=== PATIENT | male | born 1940 | race Caucasian/White ===

== ENCOUNTER 2017-03-25 18:38 | Observation (INO) | payer MEDICARE ==
[~2017-03-25] VITALS: Ht 175.3 cm; Wt 95.5 kg
[~2017-03-25 18:38] MED LIST: CALC-961 PO; LISI1TAB9 PO
[2017-03-25 18:47] VITALS: BP 164/84; PULSE 75; RESP 15; O2SAT 98
--- NOTE | 2017-03-25 19:28 | ED.REPORT ---
HPI-General Illness Date of Service Mar 25, 2017 ED Provider: Germán Padilla MD Pt is a 77 year old male with a history of HTN who presents to the ED complaining of left leg malfunction onset 8 hours ago. He denies chest pain, chest discomfort, dizziness, tinnitus, nausea, numbness, change in speech and weakness. He reports that he was sitting in a chair when he felt like he was falling out his chair to the left. The pt got up and tried to walk down the hallway to his room, and he states that his left leg "wasn't working right" and that he was falling against the wall. He reports that he used his blood pressure cuff and determined that he had a blood pressure of 101/60 with a heart rate of 110. At the time, the pt also reports that it felt like his heart was pounding and that his heart beat was possibly irregular. The pt admits drinking alcohol (3x daily), but denies smoking. He denies taking Aspirin. Nursing Notes Stated Complaint: MEMORY DIFFICULTY,L ARM NUMB Chief Complaint: Chest Pain Nursing Notes Reviewed: Yes Allergies: Coded Allergies: No Known Drug Allergies (Verified Allergy, Unknown, 03/25/17) Scheduled Calcium Carbonate (Calcium Carbonate) 600 Mg Tablet 600 MG PO DAILY Gluc 2Kcl/Chondr/George Hy/Hy AC (Glucosamine & Chondroitin Cap) 1 Each Capsule 2 EACH PO DAILY Lisinopril / HCTZ 20-12.5 mg (Lisinopril / HCTZ 20-12.5 mg) 1 Each Tablet 1 EACH PO QAM Multivit-Min/FA/Lycopene/Lut (Senior Tabs) 0.4 Mg-300 Mcg-250 Mcg Tablet 1 EACH PO QAM [place]-3/Dha/Epa/Fish Oil (Fish Oil 1,000 mg Softgel) 1 Each Capsule 1 EACH PO QAM Tamsulosin (Flomax) 0.4 Mg Capsule 0.4 MG PO DAILY General Time Seen by MD: 19:27 Chief Complaint Other (Difficulty walking) Hx Obtained From: Patient Arrived By: Walk-in Sudden in Onset?: Yes Onset Occurred: 5 - 8 hours ago Symptom Duration: 1 - 15 minutes Severity: Current: No pain currently Severity: Maximum: No pain Recent Healthcare: No recent doctor visit, No recent hospitalization Similar Sx Previous: No Past Medical History Past Medical History Notes: PCP - Yvette Merritt Past Medical History Psoriasis Denies: Congestive heart failure, Diabetes mellitus Past Surgical History Vasectomy Smoking History Never Smoker Social History Alcohol Use: 1-3 per day Drug Use: Denies drug use Other Social History: Good social support Ambulatory Status Independent Review of Systems Denies chest discomfort Full Review of Systems Ears / Nose / Throat: Denies: Ear ringing bilateral Cardiovascular: Denies: Chest pain GI: Denies: Nausea Neurologic: Reports: Problem walking, Denies: Dizziness, Numbness Complete sys rev & neg: except as marked. Physical Exam Vital Signs Vital Signs Date Time Temp Pulse Resp B/P Pulse Ox O2 Delivery O2 Flow Rate FiO2 03/25/17 22:16 66 16 164/90 98 03/25/17 21:00 64 16 132/76 96 Room Air 03/25/17 18:47 36.7 75 15 164/84 98 Room Air Initial VS: Reviewed Neck: Full range of motion Respiratory: Breath sounds normal, Clear to auscultation, No respiratory distress Extremities: Vascular intact, Neuro intact Skin: Warm, Dry Neurologic: Alert, Oriented, Nonfocal Psychiatric: Mood/affect normal, Behavior normal General/Constitutional: Awake, Alert, Cooperative, Not toxic appearing Head / Eyes: Normocephalic, EOMI Cardiovascular: Heart rate NL, Regular rhythm, Heart sounds NL, No gallop, No murmurs Neurologic: Oriented X3, Speech NL, No motor deficits, No sensory deficits Mental Status: Negative: Disoriented to time Sensation to palpation is normal. No ataxia or drift. Interpretation & Diagnostics Lab Results Interpretation Result Diagram: 03/25/17194403/25/171944 Test 03/25/17 18:45 03/25/17 19:45 03/25/17 20:06 Hold Cruz Top Tube Received (Received) White Blood Count 5.5th/mm3 (3.8-10.1) Red Blood Count 4.53mil/mm3 (4.40-5.80) Hemoglobin 14.1g/dL (13.8-17.2) Hematocrit 40.4% (41.0-50.0) Mean Corpuscular Volume 89.2fL (81-100) Mean Corpuscular Hemoglobin 31.1pg (27.0-35.0) Mean Corpuscular Hemoglobin Concent 34.9% (32.0-37.0) Red Cell Distribution Width 13.4% (12.3-15.4) Platelet Count 264bil/L (150-400) Neutrophils (%) (Auto) 52.1% (40-74) Lymphocytes (%) (Auto) 31.4% (14-46) Monocytes (%) (Auto) 12.2% (4-12) Eosinophils (%) (Auto) 3.7% (0-5) Basophils (%) (Auto) 0.4% (0-3) Sodium Level 138mEq/L (134-144) Potassium Level 4.1mEq/L (3.5-5.2) Chloride Level 102mEq/L (97-108) Carbon Dioxide Level 21mmol/L (18-29) Blood Urea Nitrogen 15mg/dL (8-27) Creatinine 0.95mg/dL (0.76-1.27) Estimat Glomerular Filtration Rate 82mL/min (>59) Glucose Level 105mg/dL (60-99) Calcium Level 9.4mg/dL (8.5-10.1) Magnesium Level 2.3mg/dL (1.6-2.6) Total Bilirubin 0.2mg/dL (0.0-1.2) Aspartate Amino Transf (AST/SGOT) 25U/L (0-50) Alanine Aminotransferase (ALT/SGPT) 19U/L (0-44) Alkaline Phosphatase 57U/L (25-160) Troponin T < 0.010ug/L (0.0-0.011) Total Protein 7.0g/dL (6.4-8.4) Albumin 4.0g/dL (3.4-5.0) Triglycerides Level 202mg/dL (0-149) Cholesterol Level 191mg/dL (100-199) LDL Cholesterol, Calculated 47.600mg/dL (0-99) VLDL Cholesterol 40mg/dL HDL Cholesterol 103mg/dL (>39) Cholesterol/HDL Ratio 1.85 (0.0-4.4) Thyroid Stimulating Hormone (TSH) 1.150uIU/mL (0.450-4.500) Hold Urine Received (Received) ECG Interpretation ECG Interpretation: Sinus rhythm with a rate of 72. Possible left atrial enlargement. Time: 19:01 Interpreted by: ED physician CT Head Interpretation IMPRESSION: No acute intracranial abnormality. Dictated by: Ned Giles M.D. on 03/25/2017 at 20:08 Study: Head CT no contrast Interpretation / Wet Read by: Interpret - Radiologist Re-Eval/Medical Decision Med Decision/Clinical Course 77-year-old male with a history suggesting a transient ischemic attack involving the left lower extremity. He has normotensive and in normal sinus rhythm at present, he is noted to have a right carotid bruit. Noncontrast CT scan is without acute abnormality. He was given aspirin in the emergency department and will be admitted to the hospitalist service for an expedited evaluation. CODE STATUS was discussed and he wishes to be full code Source of Hx: Old records Time of Eval: 21:58 Patient Status: Condition improved Re-Evaluation/Progress Note: Pt rechecked. Informed pt of plan to admit. Pt understands and agrees with plan to admit. All questions were answered. Consultation : Referral / Consult Name: Luba Martinez DO Consulted With: Hospitalist Call Returned at: 22:18 Beverage Host: Will see patient, Agrees with eval, Agrees with plan, Accepts admit Counseled Regarding: Diagnosis, Lab results, Need for admission Discharge & Departure Primary Impression: Transient ischemic attack (TIA) Transient cerebral ischemia type: unspecified Qualified Code: G45.9 - Transient cerebral ischemic attack, unspecified Disposition: ADMITTED TO HOSPITAL Discharge Condition All VS Reviewed: Yes Condition: Stable Referrals: Gail Spangler PA-C (PCP) [employer] Attestation Portions of this note were transcribed by Hyacinth Vincent. I, Dr. Padilla personally performed the history, physical exam and medical decision-making; I reviewed and confirmed the accuracy of the information in the transcribed note. Signed by : Natali Funes, 03/25/17 and 21:30. copies to: Gail Spangler PA-C Risk Factors NIH Stroke Scale Level of Consciousness: Alert and responsive (0) Open/Close Eyes/Hand Link Machine Operator: Performs both tasks (0) Horizontal EO Movements: None (0) Visual [place]: No visual loss (0) Facial Palsy: Normal symmetry (0) Right Arm Motor Drift (10s): No drift 10 sec (0) Left Arm Motor Drift (10s): No drift 10 sec (0) Right Leg Motor Drift (5s): No drift 5 sec (0) Left Leg Motor Drift (5s): No drift 5 sec (0) Limb Ataxia FNF/Heel-[place]: No ataxia (0) Sensation (Arms/Legs/Face): No sensory loss (0) Language Aphasia: No aphasia, normal (0) Dysarthria: No dysarthria, normal (0) Extinction/Inattention: No exctinct/inattent (0) NIHSS Score: 0 Time NIHSS Performed: 21:58 Date NIHSS Performed: Mar 25, 2017 Germán Padilla MD Mar 25, 2017 19:28 Hyacinth Shelton Mar 25, 2017 20:18
[2017-03-25 19:58] LABS: BASOPHILS % (AUTO) 0.4 % (0-3); EOSINOPHILS % (AUTO) 3.7 % (0-5); MONOCYTES % (AUTO) 12.2 % (4-12); Mean Corpuscular Hemoglobin 31.1 pg (27.0-35.0); Mean Corpuscular Volume 89.2 fL (81-100); NEUTROPHILS % (AUTO) 52.1 % (40-74); Platelet Count 264 bil/L (150-400)
--- NOTE | 2017-03-25 20:16 | DRSVH ---
PROCEDURE: CT BRAIN WITHOUT CONTRAST ([id number]) INDICATIONS: L arm numbness TECHNIQUE: Noncontrast 4.5 mm thick angled axial sections acquired from the foramen magnum to the vertex, with c oronal reformats. COMPARISON: None. FINDINGS: Image quality: Excellent. CSF spaces: Basal cisterns are patent. No extra-axial fluid collections. The ventricles are symmet abimbola in size and shape. Probable arachnoid cyst in the posterior fossa at midline. Brain: No intracranial bleeds or masses. There is mild cerebral volume loss for age, with resultant ventricular and sulcal prominence. There are mild periventricular and deep white matter chronic sma ll vessel ischemic changes. There is intracranial internal carotid artery atherosclerosis. Skull and face: Calvarium and visualized facial bones appear intact, without suspicious lesions. Sinuses: Visualized sinuses and mastoids are clear. IMPRESSION: No acute intracranial abnormality. Dictated by: Ned Giles M.D. on 03/25/2017 at 20:08 Approved by: Ned Giles M.D. on 03/25/2017 at 20:15
[2017-03-25 20:20] LABS: Magnesium 2.3 mg/dL (1.6-2.6)
[2017-03-25 20:31] LABS: TROPONIN T < 0.010 ug/L (0.0-0.011)
[2017-03-25 21:00] VITALS: BP 132/76; PULSE 64; RESP 16; O2SAT 96
[2017-03-25 22:16] VITALS: BP 164/90; PULSE 66; RESP 16; O2SAT 98
[2017-03-25] MEDS ORDERED: TAMS0.4C98 PO (22:35)
[2017-03-25] MEDS ORDERED: OMEG-38 PO (22:45)
[2017-03-25] MEDS ORDERED: GLUC-120 PO (22:45)
[2017-03-25] MEDS ORDERED: MULT-1083 PO (22:45)
[2017-03-25] MEDS ORDERED: CALC600T20 PO (22:45)
[2017-03-25] MEDS ORDERED: Ondansetron 2 mg/mL 2 mL Inj IVPUSH PRN (23:00)
[2017-03-25] MEDS ORDERED: Alum-Mag Hydrox-Simeth 30 mL Suspension PO PRN (23:00)
[2017-03-25] MEDS ORDERED: Polyethylene Glycol (PEG) 17 Gm Powder PO PRN (23:00)
[2017-03-25] MEDS ORDERED: Labetalol 5 mg/mL 4 mL Inj IVPUSH PRN (23:00)
[2017-03-25 23:06] VITALS: BP 148/64; PULSE 62; RESP 16; O2SAT 97
[2017-03-25 23:20] VITALS: BP 164/89; PULSE 62; RESP 18; O2SAT 96
[2017-03-25] MEDS ORDERED: Labetalol 5 mg/mL 20 mL Inj IVPUSH PRN (23:59)
[2017-03-26] MEDS: Heparin 5,000 Unit/mL Inj SUBQ SCH ×2 (00:30→08:45)
--- NOTE | 2017-03-26 00:44 | NUR ---
Admit Pt arrived on unit #[id number] at apprx 2320 via wheelchair from ED with all personal belongings. Able to transfer self to bed. VSS. Neuro's WNL. Passed RN swallow screen. B. Oriented to room, hospital policy and call light. Bed locked, low position. Non slip socks and SBA for safety. Call light within reach, using appropriately. Frequent rounding in place. Pleasant and cooperative with care.
--- NOTE | 2017-03-26 01:22 | PCM.HPMED ---
Subjective Date of Service Mar 25, 2017 Primary Provider: Admitting Physician: Luba Martinez DO Primary Care Physician: Gail Spangler PA-C Attending Physician: Luba Martinez DO Admit Status: From the Emergency Department Chief Complaint: weakness History of Present Illness: Tim Crowell is a pleasant 77-year-old gentleman with history of hypertension, experienced left sided weakness dizziness, and palpitations earlier today roughly 2:30 in the afternoon. He describes sitting at his computer when he felt like he was falling to the left. Said he was able to speak, notify his of his symptoms, denies any confusion, but did have some lightheadedness. He is a nonsmoker, no family history of heart attack or CVA. Risk factors for stroke include high blood pressure. He took his blood pressure during the event and showed his blood pressure was 101, and heart rate 110. He originally went to urgent care at the triage nurse diverted him to the [facility] emergency department, on presentation temperature was 36.7, 75, 15, 164/84, 98% on room air. CMP and CBC were unremarkable, TSH normal, troponin negative. EKG showed normal sinus rhythm with a rate of 72 "possible left atrial enlargement" Head CT stated no acute intracranial abnormality He [facility], review of outpatient records shows he had mildly elevated LDL in the 100 teens, with total less than 200 yearly up until 2015 when it ceased to be evaluated. He is not on any medication for hyperlipidemia and denies ever having history of it. Allergies Coded Allergies: No Known Drug Allergies (Verified Allergy, Unknown, 03/25/17) Home Medications Scheduled Calcium Carbonate (Calcium Carbonate) 600 Mg Tablet 600 MG PO DAILY Gluc 2Kcl/Chondr/George Hy/Hy AC (Glucosamine & Chondroitin Cap) 1 Each Capsule 2 EACH PO DAILY Lisinopril / HCTZ 20-12.5 mg (Lisinopril / HCTZ 20-12.5 mg) 1 Each Tablet 1 EACH PO QAM Multivit-Min/FA/Lycopene/Lut (Senior Tabs) 0.4 Mg-300 Mcg-250 Mcg Tablet 1 EACH PO QAM [place]-3/Dha/Epa/Fish Oil (Fish Oil 1,000 mg Softgel) 1 Each Capsule 1 EACH PO QAM Tamsulosin (Flomax) 0.4 Mg Capsule 0.4 MG PO DAILY PMH Tonsillectomy Psoriasis Hypertension History of H. pylori treated Glucose intolerance Colonic polyps Squamous cell carcinoma Arm melanoma Glaucoma Surgical History Tonsillectomy Malignant neoplasm removed from skin Family History Father at 76 years old from colon cancer Mother at 71 secondary to complications of alcohol abuse Sister at age 71 from alcohol and tobacco abuse Social History Hx Alcohol Use: Yes (2 beers a night) Hx Substance Use: No Hx Tobacco Use: No Smoking Status: Never Smoker Living Arrangement: with Family Exam Vital Signs Vital Sign - Last Date Time Temp Pulse Resp B/P Pulse Ox O2 Delivery O2 Flow Rate FiO2 03/25/17 23:20 36.3 62 18 164/89 96 Room Air Exam General: Laying in bed, no apparent distress. HEENT: Normocephalic, atraumatic, EOMI grossly, Cardiovascular: Regular rate and rhythm, no clicks murmurs rubs, peripheral pulses 2/4 equal bilaterally Pulmonary: Clear to auscultation bilaterally, no W/R/R. I am unable to appreciate carotid bruit, or thrill Abdominal: Soft to palpation, bowel sounds present 4, no hepatosplenomegaly. Negative rebound. Extremities: No edema appreciated. No tenderness, asymmetry. Neuro: Neurologically grossly intact, strength is equal bilaterally upper and lower extremities. NIH equals 0 MSK: Able to move extremities on their own volition, strength 5 out of 5 equal bilaterally to upper and lower extremities. Lab and Diagnostics Result Diagram: 03/25/17194403/25/171944 X-Rays, CTs and MRIs Head CT noncontrast performed 03/25/2017 IMPRESSION: No acute intracranial abnormality. Dictated by: Ned Giles M.D. on 03/25/2017 at 20:08 12-lead ECG EKG showed normal sinus rhythm with a rate of 72 "possible left atrial enlargement" Assessment & Plan 77-year-old gentleman being treated for hypertension experienced left-sided weakness, dizziness, tachycardia with palpitations, symptoms abated in 5-10 minutes from onset, evaluation showed no acute hemorrhage, symptoms felt to be TIA in nature. Acute transient ischemic attack, POA, active Left-sided weakness, dizziness, history of hypertension CT without contrast negative MR stroke protocol tomorrow morning Carotid duplex ultrasound tomorrow morning Echocardiogram tomorrow morning Atorvastatin 10 mg by mouth ASA 324 mg by mouth daily, first dose given in ER HGBA1c and lipid panel pending Acute palpitations, not present on admission, active As described by patient, along with a blood pressure of 101, May represent paroxysmal/nonsustained arrhythmia EKG NSR at urgent care Place on telemetry Echocardiogram as above Aspirin as above Chronic hypertension, POA, uncontrolled, active Patient takes combination lisinopril hydrochlorothiazide pill at home, will continue from ambulatory in the a.m. Patient is admitted under observation status less than to midnight stay is anticipated based on present symptoms, complexity of care and anticipated risk of adverse events. Pain Evaluation: Adequate Pain Control GI Prophylaxis: Not indicated VTE Prophylaxis: Sub-Q Heparin (Unfractionated) Resuscitation Status: CPR: Attempt Resuscitation Attending Statement The patient was seen and examined together with house staff on 03/25/2017 and I agree with the history, exam and plan as outlined in the note above. Nikos Trejo DO Mar 25, 2017 23:46 Luba Martinez DO Mar 26, 2017 05:02
[2017-03-26 05:14] VITALS: BP 149/78; PULSE 73; RESP 20; O2SAT 99
[2017-03-26 06:34] VITALS: PULSE 55
[2017-03-26 08:00] VITALS: PULSE 65
[2017-03-26] MEDS ORDERED: Calcium Carbonate (Oyster Shell) 500 mg Tablet PO SCH (08:00)
[2017-03-26] MEDS ORDERED: Omega-3 Fatty Acids 1,000 mg Capsule PO SCH (08:30)
[2017-03-26] MEDS ORDERED: [UNRECOGNIZED DRUG - OTHER] PO SCH (08:30)
--- NOTE | 2017-03-26 10:15 | NUR ---
MRI pt off floor for MRI. this RN will finish assessment when pt returns to the floor.
--- NOTE | 2017-03-26 10:25 | NUR ---
Discussed with RN. Patient has been drinking water without difficulty. ACCREDITATION MANAGER evaluation held due to normal swallow and speech function at this time. Rec: Thin/Regular diet with distant supervision for first meal and referral to ACCREDITATION MANAGER with any new or worsening condition.
--- NOTE | 2017-03-26 10:38 | DRSVH ---
PROCEDURE: MRI STROKE PROTOCOL ([id number]) Pre- and post-contrast brain MRI, non-contrast brain MR angiogram, pre- and postcontrast neck MR tomas ogram INDICATIONS: Lt sided weakness. TECHNIQUE: Brain: Noncontrast axial T1 spin echo, axial T2 fast spin echo, sagittal and axial FLAIR, coronal T2 fast spin echo, axial gradient echo, axial diffusion and ADC through the brain. After the administr ation of contrast, axial 3D VIBE of the cranial vasculature and brain. Brain MRA: Non-contrast 3-D time of flight MR angiogram, with multiple ypvbsfs-kennydfop-bjxecwpkic (MIP) reformats performed. Neck MRA: Axial and sagittal TruFISP through the neck. Coronal dynamic MR angiogram during administ ration of contrast in the arterial and venous phases, with 3-dimenstional toungij-uysgqvfvl-dxmypbrbe n (MIP) reformats constructed from subtraction images. COMPARISON: [facility], CT, CT BRAIN WO CON, 03/25/2017, 19:40. FINDINGS: Image quality: Excellent. BRAIN: CSF spaces: Ventricles are normal in size and shape. Basal cisterns are patent. No extra-axial flu id collections. Brain: No intracranial bleeds or mass effects. Mild diffuse cerebral volume loss. Mild degree of pa tchy high FLAIR signal intensity within the periventricular and subcortical white matter, consistent with small vessel ischemic disease. Bah-white matter interface is normal. Diffusion weighted images show no acute ischemic insults. Brainstem appears normal. Normal intravascular flow voids are pres ent. No abnormal intracranial enhancement. Skull and face: Calvarial marrow signal is normal. Orbits appear normal. Sinuses: Sinuses and mastoids are clear. BRAIN MR ANGIOGRAM: Anterior circulation: Intracranial internal carotid arteries are normal in size and enhancement. Th e flow within the paired anterior cerebral arteries is normal and symmetric. The flow within the mid dle cerebral arteries is normal and symmetric. The anterior communicating artery is seen. No stenos es, occlusions, or aneurysms. Posterior circulation: The visualized portions of the vertebral arteries demonstrate normal caliber, and join to form a normal appearing basilar artery. The flow within the posterior cerebral arteries is normal and symmetric. No stenoses, occlusions, or aneurysms. NECK MR ANGIOGRAM: Carotids: Great vessels demonstrate a conventional anatomy as they arise from the aortic arch. The origins of the common carotid arteries appear patent. The calibers and courses of both common caroti d arteries are normal. The bifurcation regions appear normal bilaterally. The internal carotid elizabeth marly demonstrate normal course and caliber. Posterior circulation: The origins of the vertebral arteries appear patent. More superior portions of both vertebral arteries demonstrate normal course and caliber, and join to form a normal appearing basilar artery. Miscellaneous: Moderate right subclavian artery origin stenosis. Left subclavian artery is patent. Pr e-contrast images through the neck show no soft tissue abnormalities. IMPRESSION: BRAIN MRI: 1. No acute process. No recent infarct. 2. Mild volume loss and small vessel ischemic disease. BRAIN MR ANGIOGRAM: Negative cerebral MR angiography. NECK MR ANGIOGRAM: 1. Moderate right subclavian artery stenosis. 2. Patent bilateral vertebral arteries. 3. Patent bilateral internal carotid arteries. The estimate of stenosis included in the report of the imaging study was calculated using the NASCET method Dictated by: Marquis Issa M.D. on 03/26/2017 at 9:33 Approved by: Marquis Issa M.D. on 03/26/2017 at 9:37
--- NOTE | 2017-03-26 11:16 | NUR ---
PT eval not indicated spoke with nsg who reported pt has been up in [facility] amb indep without difficulty; Sxs resolved; no PT indicated
[2017-03-26 15:00] VITALS: BP 144/79; PULSE 63; RESP 20; O2SAT 98
--- NOTE | 2017-03-26 15:14 | PCM.DIMED ---
Discharge Instructions Date of Service Mar 26, 2017 Dates of Hospitalization Mar 25, 2017 at 22:46 Discharge Diagnosis Discharge Diagnosis # Acute transient ischemic attack, POA, resolved # Chronic hypertension, POA, uncontrolled, active Diet Discharge Diet: Low fat, Low Sodium, Heart Healthy Activity Discharge Activity: No restrictions Call your provider Call your provider for: Fever or Chills, Shortness of breath, Bleeding, Chest pain, Vomitting, Excessive diarrhea, Weakness (unilateral) Patient Instructions Patient Instructions You were hospitalized due to transient ischemic attack . Symptoms resolved. MRI negative for acute stroke . Please take Aspirin 81mg daily and atorvastatin 40mg daily . Please follow up with PCP in 1 week . Please check your blood pressure and discuss with PCP . target BP < 140/90 . Follow-up Provider: Gail Spangler PA-C Follow-up with PCP in: 1 week Raheel Fong MD Mar 26, 2017 15:14
[2017-03-26] MEDS ORDERED: ASPI-973 PO (15:15)
[2017-03-26] MEDS ORDERED: LIP40 PO (15:15)
--- NOTE | 2017-03-26 15:19 | PCM.DC.MED ---
Discharge Summary Date of Service Mar 26, 2017 Dates of Hospitalization Date of Hospital Admission Mar 25, 2017 at 22:46 Date of Discharge: Mar 26, 2017 Providers: Admitting Physician: Raheel Harper MD Primary Care Physician: Gail Spangler PA-C Attending Physician: Raheel Harper MD Diagnosis at Time of Discharge Diagnosis at Time of Discharge # Acute transient ischemic attack, POA, resolved # Chronic hypertension, POA, uncontrolled, active Consultations none Procedures XRay, CTs & MRIs Head CT noncontrast performed 03/25/2017 IMPRESSION: No acute intracranial abnormality. Dictated by: Ned Giles M.D. on 03/25/2017 at 20:08 PROCEDURE: MRI STROKE PROTOCOL ([id number]) Pre- and post-contrast brain MRI, non-contrast brain MR angiogram, pre- and postcontrast neck MR angiogram INDICATIONS: Lt sided weakness. TECHNIQUE: Brain: Noncontrast axial T1 spin echo, axial T2 fast spin echo, sagittal and axial FLAIR, coronal T2 fast spin echo, axial gradient echo, axial diffusion and ADC through the brain. After the administration of contrast, axial 3D VIBE of the cranial vasculature and brain. Brain MRA: Non-contrast 3-D time of flight MR angiogram, with multiple maximum- intensity-projection (MIP) reformats performed. Neck MRA: Axial and sagittal TruFISP through the neck. Coronal dynamic MR angiogram during administration of contrast in the arterial and venous phases, with 3-dimenstional hrczrww-jhdqfnqwh-zdthbugqku (MIP) reformats constructed from subtraction images. COMPARISON: [facility], CT, CT BRAIN WO CON, 03/25/2017, 19:40. FINDINGS: Image quality: Excellent. BRAIN: CSF spaces: Ventricles are normal in size and shape. Basal cisterns are patent. No extra-axial fluid collections. Brain: No intracranial bleeds or mass effects. Mild diffuse cerebral volume loss. Mild degree of patchy high FLAIR signal intensity within the periventricular and subcortical white matter, consistent with small vessel ischemic disease. Bah-white matter interface is normal. Diffusion weighted images show no acute ischemic insults. Brainstem appears normal. Normal intravascular flow voids are present. No abnormal intracranial enhancement. Skull and face: Calvarial marrow signal is normal. Orbits appear normal. Sinuses: Sinuses and mastoids are clear. BRAIN MR ANGIOGRAM: Anterior circulation: Intracranial internal carotid arteries are normal in size and enhancement. The flow within the paired anterior cerebral arteries is normal and symmetric. The flow within the middle cerebral arteries is normal and symmetric. The anterior communicating artery is seen. No stenoses, occlusions, or aneurysms. Posterior circulation: The visualized portions of the vertebral arteries demonstrate normal caliber, and join to form a normal appearing basilar artery. The flow within the posterior cerebral arteries is normal and symmetric. No stenoses, occlusions, or aneurysms. NECK MR ANGIOGRAM: Carotids: Great vessels demonstrate a conventional anatomy as they arise from the aortic arch. The origins of the common carotid arteries appear patent. The calibers and courses of both common carotid arteries are normal. The bifurcation regions appear normal bilaterally. The internal carotid arteries demonstrate normal course and caliber. Posterior circulation: The origins of the vertebral arteries appear patent. More superior portions of both vertebral arteries demonstrate normal course and caliber, and join to form a normal appearing basilar artery. Miscellaneous: Moderate right subclavian artery origin stenosis. Left subclavian artery is patent. Pre-contrast images through the neck show no soft tissue abnormalities. IMPRESSION: BRAIN MRI: 1. No acute process. No recent infarct. 2. Mild volume loss and small vessel ischemic disease. BRAIN MR ANGIOGRAM: Negative cerebral MR angiography. NECK MR ANGIOGRAM: 1. Moderate right subclavian artery stenosis. 2. Patent bilateral vertebral arteries. 3. Patent bilateral internal carotid arteries. The estimate of stenosis included in the report of the imaging study was calculated using the NASCET method Dictated by: Marquis Issa M.D. on 03/26/2017 at 9:33 ECG 12 Lead EKG showed normal sinus rhythm with a rate of 72 "possible left atrial enlargement Brief History per HPI Tim Crowell is a pleasant 77-year-old gentleman with history of hypertension, experienced left sided weakness dizziness, and palpitations earlier today roughly 2:30 in the afternoon. He describes sitting at his computer when he felt like he was falling to the left. Said he was able to speak, notify his of his symptoms, denies any confusion, but did have some lightheadedness. He is a nonsmoker, no family history of heart attack or CVA. Risk factors for stroke include high blood pressure. He took his blood pressure during the event and showed his blood pressure was 101, and heart rate 110. He originally went to urgent care at the triage nurse diverted him to the [facility] emergency department, on presentation temperature was 36.7, 75, 15, 164/84, 98% on room air. CMP and CBC were unremarkable, TSH normal, troponin negative. EKG showed normal sinus rhythm with a rate of 72 "possible left atrial enlargement" Head CT stated no acute intracranial abnormality He [facility], review of outpatient records shows he had mildly elevated LDL in the 100 teens, with total less than 200 yearly up until 2014 when it ceased to be evaluated. He is not on any medication for hyperlipidemia and denies ever having history of it. Hospital Course 77-year-old gentleman being treated for hypertension experienced left-sided weakness, dizziness, tachycardia with palpitations, symptoms abated in 5-10 minutes from onset, evaluation showed no acute hemorrhage, symptoms felt to be TIA in nature. # Acute transient ischemic attack, POA, active Left-sided weakness, dizziness, history of hypertension CT without contrast negative MR stroke protocol negative for stroke Echocardiogram official reading pending discharge on ASA 81 mg daily and Atorvastatin 40mg mg by mouth LDL 47,A1c pending ,follow up with PCP # Acute palpitations, not present on admission, active As described by patient, along with a blood pressure of 101, May represent paroxysmal/nonsustained arrhythmia EKG NSR at urgent care telemetry unrevealing Echocardiogram as above Aspirin as above # Chronic hypertension, POA, uncontrolled, active Patient takes combination lisinopril hydrochlorothiazide pill at home, discharged home condition stable Exam Vital Signs (Last) Date Time Temp Pulse Resp B/P Pulse Ox O2 Delivery O2 Flow Rate FiO2 03/26/17 15:00 36.3 63 20 144/79 98 Room Air Exam General: Laying in bed, no apparent distress. HEENT: Normocephalic, atraumatic, EOMI grossly, Cardiovascular: Regular rate and rhythm, no clicks murmurs rubs, peripheral pulses 2/4 equal bilaterally Pulmonary: Clear to auscultation bilaterally, no W/R/R. I am unable to appreciate carotid bruit, or thrill Abdominal: Soft to palpation, bowel sounds present 4, no hepatosplenomegaly. Negative rebound. Extremities: No edema appreciated. No tenderness, asymmetry. Neuro: Neurologically grossly intact, strength is equal bilaterally upper and lower extremities. NIH equals 0 MSK: Able to move extremities on their own volition, strength 5 out of 5 equal bilaterally to upper and lower extremities. Test 03/25/17 18:45 03/25/17 19:45 03/25/17 20:06 Hold Cruz Top Tube Received (Received) White Blood Count 5.5th/mm3 (3.8-10.1) Red Blood Count 4.53mil/mm3 (4.40-5.80) Hemoglobin 14.1g/dL (13.8-17.2) Hematocrit 40.4% (41.0-50.0) Mean Corpuscular Volume 89.2fL (81-100) Mean Corpuscular Hemoglobin 31.1pg (27.0-35.0) Mean Corpuscular Hemoglobin Concent 34.9% (32.0-37.0) Red Cell Distribution Width 13.4% (12.3-15.4) Platelet Count 264bil/L (150-400) Neutrophils (%) (Auto) 52.1% (40-74) Lymphocytes (%) (Auto) 31.4% (14-46) Monocytes (%) (Auto) 12.2% (4-12) Eosinophils (%) (Auto) 3.7% (0-5) Basophils (%) (Auto) 0.4% (0-3) Sodium Level 138mEq/L (134-144) Potassium Level 4.1mEq/L (3.5-5.2) Chloride Level 102mEq/L (97-108) Carbon Dioxide Level 21mmol/L (18-29) Blood Urea Nitrogen 15mg/dL (8-27) Creatinine 0.95mg/dL (0.76-1.27) Estimat Glomerular Filtration Rate 82mL/min (>59) Glucose Level 105mg/dL (60-99) Calcium Level 9.4mg/dL (8.5-10.1) Magnesium Level 2.3mg/dL (1.6-2.6) Total Bilirubin 0.2mg/dL (0.0-1.2) Aspartate Amino Transf (AST/SGOT) 25U/L (0-50) Alanine Aminotransferase (ALT/SGPT) 19U/L (0-44) Alkaline Phosphatase 57U/L (25-160) Troponin T < 0.010ug/L (0.0-0.011) Total Protein 7.0g/dL (6.4-8.4) Albumin 4.0g/dL (3.4-5.0) Triglycerides Level 202mg/dL (0-149) Cholesterol Level 191mg/dL (100-199) LDL Cholesterol, Calculated 47.600mg/dL (0-99) VLDL Cholesterol 40mg/dL HDL Cholesterol 103mg/dL (>39) Cholesterol/HDL Ratio 1.85 (0.0-4.4) Thyroid Stimulating Hormone (TSH) 1.150uIU/mL (0.450-4.500) Hold Urine Received (Received) Discharge Medications Discharge Medications Aspirin (Aspirin) 81 Mg Tablet 81 MG PO DAILY Prescribed by: RAHEEL HARPER MD Atorvastatin (Lipitor) 40 Mg Tablet 40 MG PO DAILY Prescribed by: RAHEEL HARPER MD Calcium Carbonate (Calcium Carbonate) 600 Mg Tablet 600 MG PO DAILY (Reported) Gluc 2Kcl/Chondr/George Hy/Hy AC (Glucosamine & Chondroitin Cap) 1 Each Capsule 2 EACH PO DAILY (Reported) Lisinopril / HCTZ 20-12.5 mg (Lisinopril / HCTZ 20-12.5 mg) 1 Each Tablet 1 EACH PO QAM (Reported) Multivit-Min/FA/Lycopene/Lut (Senior Tabs) 0.4 Mg-300 Mcg-250 Mcg Tablet 1 EACH PO QAM (Reported) [place]-3/Dha/Epa/Fish Oil (Fish Oil 1,000 mg Softgel) 1 Each Capsule 1 EACH PO QAM (Reported) Tamsulosin (Flomax) 0.4 Mg Capsule 0.4 MG PO DAILY (Reported) Followup Plan Disposition: home Discharge Diet: Low fat, Low Sodium, Heart Healthy Discharge Activity: No restrictions Patient Instructions You were hospitalized due to transient ischemic attack . Symptoms resolved. MRI negative for acute stroke . Please take Aspirin 81mg daily and atorvastatin 40mg daily . Please follow up with PCP in 1 week . Please check your blood pressure and discuss with PCP . target BP < 140/90 . Follow-up Provider: Gail Spangler PA-C Follow-up with PCP in: 1 week copies to: Gail Spangler PA-C, Melaku MD Mar 26, 2017 15:19
--- NOTE | 2017-03-26 15:46 | NUR ---
BANDAR explained and signed. Copy of PORTILLO given to pt.
--- NOTE | 2017-03-26 16:32 | NUR ---
Social Work: Initial Assessment / D/C Data: Pt is a 77 y/o male admitted for TIA. Pt's PCP is Dr hunt, pt's insurance is [facility] [employer]. EMR reviewed. D/C orders are in. IT MANAGER met with pt at bedside, role explained. Pt states he lives on [address] with his in a single story home with 5 stairs to enter where he uses no DME. Pt states that he drives, has no hx of HH or SNF, no LTC or VA benefits, and is not a caregiver. No d/c planning needs from . IT MANAGER will continue to follow if needs arise. Assessment: Pt who is independent at baseline. Plan: Pt will d/c home via POV today. No d/c planning needs from . IT MANAGER will continue to follow if needs arise. FRANCISCO Eaton Addendum: 03/26/17 at 1634 by RONNIE HEBERT Amended: Links added.
--- NOTE | 2017-03-26 16:47 | DRSVH ---
[facility] [address] [place] [address] Echocardiogram Report Name: ANDRZEJ ROJAS DStudy Date: 03/26/2017 Height: 69 in Hospital Exam Location: [facility] Weight: 210 lb Gender: Male BSA: 2.1 m2 : 1940 Age: 77 yrs BP: 149/78 mmHg Reason For Study: TIA Ordering Physician: Performed By: Corinne Med[facility]inPh[place] HospitalIST [facility] Interpretation Summary The patient was in normal sinus rhythm during the exam. The left ventricle is normal in size, wall thickness, and systolic function without any focal wall motion abnormalities. The ejection fraction is estimated to be 60-65%. Assessment of diastolic parameters indicates a relaxation abnormality of the left ventricle, consistent with normal filling pressures. The right ventricle is normal in size, thickness and function. The interatrial septum is intact with no evidence for an atrial septal defect. Injection of contrast documented no interatrial shunt. No other echocardiographic abnormalities seen. No obvious cause for the patients TIA identified on this exam. Procedure: A two-dimensional transthoracic echocardiogram with color flow and Doppler was performed. The study quality was technically adequate. Comparison is made with the echocardiogram of 03-10-11. The patient was in normal sinus rhythm during the exam. Left Ventricle: The left ventricle is normal in size, wall thickness, and systolic function without any focal wall motion abnormalities. The ejection fraction is estimated to be 60-65%. Assessment of diastolic parameters indicates a relaxation abnormality of the left ventricle, consistent with normal filling pressures. Right Ventricle: The right ventricle is normal in size, thickness and function. The right ventricular systolic function is normal. Atria: The left atrium is borderline dilated. Right atrial size is normal. Injection of contrast documented no interatrial shunt. The interatrial septum is intact with no evidence for an atrial septal defect. 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 Mitral Valve: The mitral valve leaflets appear mildly thickened, but open well. There is no mitral regurgitation noted. Aortic Valve: The aortic valve is trileaflet. The aortic valve opens well. There is trace aortic regurgitation. Tricuspid Valve: The tricuspid valve is normal in structure and function. There is a trace or physiologic amount of tricuspid regurgitation. The right ventricular systolic pressure is estimated at 30 mmHg assuming a right atrial pressure of 3 mm Hg. Pulmonic Valve: The pulmonic valve is normal in structure and function. There is trace pulmonic regurgitation. Great Vessels: The aortic root is normal size. The ascending aorta is mildly enlarged. The IVC is of normal diameter and collapses greater than 50% with a sniff. This suggests a low right atrial pressure of 3 mm Hg. Pericardium/ Pleura There is no pericardial effusion. There is no pleural effusion. MMode/2D Measurements & Calculations LVIDd: 5.3 cm LA dimension: 4.2 cm RA long axis Ao root diam LVIDs: 2.8 cm FS: 46.0 % LA A2 area: 22.8 cm RA area Aortic Jxn: 3.4 cm IVSd: 1.1 cm LA A4 area: 22.7 cm asc Aorta Diam LVPWd: 0.67 cm LA length (vol) : 15.3 cm RA vol Ao Arch Diam (Prox LA vol: 75.3 ml : 47.2 ml Trans): 3.4 cm LA vol index RA : 22.4 mm/ RVDd major IVC diam: 1.6 cm : 6.0 cm LV zamarripa. diameter/BSA LV sys. diameter/BSA RVD1 (basal) RVD2 (mid): 2.9 cm (cm/m^2): 2.5 (cm/m^2): 1.3 Doppler Measurements & Calculations Ao V2 max MV E max edi MV E/A: 0.66 TR max eid : 163.9 cm/sec : 65.2 cm/sec Med Peak E' Edi : 258.1 cm/sec Ao max PG MV A max edi TR max PG : 10.7 mmHg : 98.3 cm/sec E/E' med: 8.8 : 26.6 mmHg Ao mean PG MV P1/2t: 86.9 msec Lat Peak E' Edi PA V2 max : 98.5 cm/sec AI P1/2t E/E' lat: 7.8 PA mean PG : 560.4 msec E/e' average: 8.3 AI dec slope MV A dur: 0.12 sec PA Accel Time : 205.1 cm/s2c : 0.14 sec MV dec time MV P1/2t max edi Ao V2 mean PA V2 mean : 0.30 sec : 103.2 cm/sec : 60.6 cm/sec Ao V2 VTI: 31.5 cm MVA(P1/2t): 2.5 cm2 Reading Physician:04:46 PM
== END 2017-03-26 16:45 | disposition home or self-care (01) ==
LOC: SED 18:38 → MPC 22:46
PROVIDERS: ADMIT Internal Medicine; ATTEND Internal Medicine
DX: R53.1 Weakness (principal); R42 Dizziness and giddiness; R00.2 Palpitations; R00.0 Tachycardia, unspecified; G45.9 Transient cerebral ischemic attack, unspecified; I10 Essential (primary) hypertension; L40.9 Psoriasis, unspecified; E74.39 Other disorders of intestinal carbohydrate absorption; H40.9 Unspecified glaucoma; Z85.820 Personal history of malignant melanoma of skin; Z79.82 Long term (current) use of aspirin
CPT/HCPCS: 36415; 70450; 70549; 70553; 80053; 80061; 83036; 83735; 84443; 84484; 85025; 93005; 99285; A9585; C8929; G0378; J1644